=== PATIENT | female | born 1975 | race Caucasian/White ===

== ENCOUNTER 2018-03-04 19:38 | Emergency (ER) | payer OTHER ==
[2018-03-04 19:43] VITALS: BP 127/72
[2018-03-04] MEDS ORDERED: ACETAMINOPHEN 325 MG TABLET ONE (20:26)
[2018-03-04] MEDS ORDERED: AMOXICILLIN TR/POT CLAVULANATE 500-125 MG TAB PO ONE ×2 (20:39→21:15)
[2018-03-04] MEDS ORDERED: DIPH/PERTUSS(ACELL)/TETANUS VAC/PF 0.5 ML SYR (>=10YO) IM ONE ×2 (20:40→21:00)
--- NOTE | 2018-03-04 20:47 | ER Document Report ---
ED General - General Chief Complaint: Cat Bite Stated Complaint: CAT BITE Time Seen by Provider: 03/04/18 20:20 Notes: Patient is a 42-year-old female without chronic medical problems who presents with increasing redness and pain to her right hand and forearm. She states that her cat bit her yesterday, approximately 36 hours ago. She states initially there was no redness over the past approximately 12 hours she has had progression of redness and pain to the area. She notes a dull, throbbing, constant pain to the area. Nothing improves or worsens the pain. No history of the same. She denies fever or constitutional symptoms. TRAVEL OUTSIDE OF THE [place] IN LAST 30 DAYS: No - Related Data Allergies/Adverse Reactions: No Known Allergies Allergy (Unverified 03/04/18 19:41) Past Medical History - General Information source: Patient - Social History Smoking Status: Never Smoker Frequency of alcohol use: None Drug Abuse: None Lives with: Spouse/Significant other Family History: Reviewed & Not Pertinent Review of Systems - Review of Systems Notes: Constitutional: Negative for fever. HENT: Negative for sore throat. Eyes: Negative for visual changes. Cardiovascular: Negative for chest pain. Respiratory: Negative for shortness of breath. Gastrointestinal: Negative for abdominal pain, vomiting or diarrhea. Genitourinary: Negative for dysuria. Musculoskeletal: Positive for right hand pain Skin: Positive for rash. Neurological: Negative for headaches, weakness or numbness. 10 point ROS negative except as marked above and in HPI. Physical Exam - Vital signs Vitals: Temp Pulse Resp BP Pulse Ox 98.7 F 91 18 127/72 H 99 03/04/18 19:41 03/04/18 19:41 03/04/18 19:41 03/04/18 19:41 03/04/18 19:41 Interpretation: Normal Notes: PHYSICAL EXAMINATION: GENERAL: Well-appearing, well-nourished and in no acute distress. HEAD: Atraumatic, normocephalic. EYES: Pupils equal round and reactive to light, extraocular movements intact, sclera anicteric, conjunctiva are normal. ENT: nares patent, oropharynx clear without exudates. Moist mucous membranes. NECK: Normal range of motion, supple without lymphadenopathy LUNGS: Breath sounds clear to auscultation bilaterally and equal. No wheezes rales or rhonchi. HEART: Regular rate and rhythm without murmurs ABDOMEN: Soft, nontender, normoactive bowel sounds. No guarding, no rebound. No masses appreciated. EXTREMITIES: Normal range of motion, no pitting or edema. No cyanosis. Full flexion extension against resistance in all digits NEUROLOGICAL: No focal neurological deficits. Moves all extremities spontaneously and on command. PSYCH: Normal mood, normal affect. SKIN: Warm, Dry, normal turgor, erythema and mild swelling of the dorsal surface of the right hand extending approximately 4 cm of the dorsal surface of the right forearm Course - Re-evaluation Re-evalutation: 03/04/18 20:47 Patient presents with a cat bite to the right hand that she sustained approximately 36 hours ago. The patient now has an acute cellulitis of the right hand has spread approximately 4 cm of her dorsal forearm. There is no purulent drainage. Patient has declined an x-ray. Her tetanus has been updated. She has been started on Augmentin. Due to increment weather conditions as there is currently [place] the patient has been encouraged to follow-up whenever able with her primary doctor and contact 911 should she have worsening of her symptoms. Her vitals otherwise within normal limits. No indication for labs at this time - Vital Signs Vital signs: Temp Pulse Resp BP Pulse Ox 98.7 F 91 18 127/72 H 99 03/04/18 19:41 03/04/18 19:41 03/04/18 19:41 03/04/18 19:41 03/04/18 19:41 Discharge - Discharge Clinical Impression: Cellulitis of right hand Cat bite of right hand Qualifiers: Encounter type: initial encounter Qualified Code(s): S61.451A - Open bite of right hand, initial encounter; W55.01XA - Bitten by cat, initial encounter; W55.01XA - Bitten by cat, initial encounter Condition: Good Disposition: HOME, SELF-CARE Additional Instructions: Please monitor very closely for any signs of infection from your cat bite including spreading redness from the area, fever, pus from the wound, or worsening pain. Clean the area twice daily with soap and water and then apply topical antibiotic ointment. Please take all the antibiotics that you were prescribed until they are gone. Follow-up with your primary care physician as needed. Prescriptions: Amox Tr/Potassium Clavulanate [Augmentin 875-125 Tablet] 1 tab PO BID 3 Days #6 tablet Amox Tr/Potassium Clavulanate [Augmentin 875-125 Tablet] 1 tab PO BID 7 Days # 14 tablet
[2018-03-04] MEDS ORDERED: TETANUS/DIPHTHERIA TOX-ADULT 0.5 ML SYR (>=7YO) IM ONE (21:16)
[2018-03-04] MEDS ORDERED: AMOXICILLIN TR/POT CLAVULANATE 500-125 MG TAB ONE (21:17)
== END 2018-03-04 21:45 | disposition home or self-care (01) ==
LOC: ER 19:38
DX: S61.451A Open bite of right hand, initial encounter (principal); L03.113 Cellulitis of right upper limb; W55.01XA Bitten by cat, initial encounter
CPT/HCPCS: 90471; 90714; 99283